=== PATIENT | female | born 1985 | race Two or more races ===

== ENCOUNTER 2017-05-29 22:35 | Emergency (ER) | payer MEDICAID ==
[~2017-05-29] VITALS: Ht 167.6 cm; Wt 63.5 kg
[~2017-05-29 22:35] MED LIST: VITAMIN
--- NOTE | 2017-05-29 22:45 | NUR ---
To bed 1 a 31 yo female bb self; "feels heart beating" on and off x 1 month, patient noted with anxiety. Nad noted, vss, nondiaphoretic. Initiated comfort measures. Awaiting for er md duarte.
--- NOTE | 2017-05-29 23:43 | NUR ---
started a saline lock on the rac g20, blood drawn and sent to lab.
[2017-05-29 23:45] LABS: BASOPHILS % (AUTO) 0.7 % (0.0-2.0); EOSINOPHILS % (AUTO) 0.4 % (0.0-6.0); HEMATOCRIT 39 % (33-45); HEMOGLOBIN 13.4 g/dL (11.5-14.8); LYMPHOCYTES # (AUTO) 1.2 /CMM (0.8-4.8); LYMPHOCYTES % (AUTO) 29.7 % (20.0-44.0); MEAN CORPUSCULAR HEMOGLOBIN 30 PG (26.0-33.0); MEAN CORPUSCULAR HGB CONC 34 g/dl (31.0-36.0); MEAN CORPUSCULAR VOLUME 88 fL (82-100); MONOCYTES # (AUTO) 0.5 /CMM (0.1-1.30); MONOCYTES % (AUTO) 11.8 % (2.0-12.0); NEUTROPHILS # (AUTO) 2.4 /CMM (1.8-8.9); NEUTROPHILS % (AUTO) 57.4 % (43.0-81.0); PLATELET COUNT (AUTO) 174 /CMM (150-450); RDW COEFFICIENT OF VARIATION 13.2 (11.5-15.0); RED BLOOD CELL COUNT(AUTO) 4.49 MIL/uL (4.0-5.2); WHITE BLOOD COUNT (AUTO) 4.2 K/uL (4.3-11.0)
[2017-05-29 23:56] LABS: CALCIUM, SERUM 8.2 mg/dL (8.5-10.1); CARBON DIOXIDE 26 mmol/L (21-32); CHLORIDE 102 mmol/L (98-107); CREATININE 0.8 mg/dL (0.6-1.3); GLUCOSE 90 mg/dL (74-106); POTASSIUM 3.5 mmol/L (3.5-5.1); SODIUM SERUM 138 mmol/L (136-145); UREA NITROGEN, BLOOD 10 mg/dL (7-18)
[2017-05-30] MEDS ORDERED: IV NS 0.9% 1,000 ML BAG IV ONE
[2017-05-30 00:05] LABS: TROPONIN I < 0.017 ng/mL (0.00-0.056)
[2017-05-30 00:06] LABS: D-DIMER 0.75 mg/L(FEU (0.17-0.50); INR 1.08 (0.87-1.13); PROTHROMBIN TIME 11.6 SECS (9.5-12.7)
[2017-05-30 00:19] LABS: APPEARANCE,URINE SL CLOUDY (CLEAR); BILIRUBIN,URINE 1+ (NEGATIVE); BLOOD, URINE 3+ Ery/uL (NEGATIVE); COLOR,URINE YELLOW (YELLOW); KETONES,URINE NEGATIVE (NEGATIVE); LEUKOCYTE ESTERASE ,URINE NEGATIVE (NEGATIVE); NITRITE, URINE NEGATIVE (NEGATIVE); PH,URINE 5.5 (5.0-8.0); PROTEIN,URINE 1+ mg/dl (NEGATIVE); UGLUCOSE NEGATIVE (NEGATIVE)
[2017-05-30] MEDS ORDERED: IV NS 0.9% 250 ML IV ONE (00:31)
[2017-05-30] MEDS ORDERED: IOHEXOL-350 100 ML VIAL IV ONE (00:31)
[2017-05-30 00:33] LABS: BACTERIA,URINE None seen /HPF (None Seen); SQUAMOUS EPITHELIAL CELL,UR Moderate /HPF (None Seen)
--- NOTE | 2017-05-30 00:33 | NUR ---
patient to cta.
[2017-05-30 00:34] LABS: MUCUS,URINE Few /LPF (None Seen)
[2017-05-30 01:09] LABS: THYROID STIMULATING HORMONE 1.901 uIU/mL (0.358-3.74)
--- NOTE | 2017-05-30 01:34 | NUR ---
IV removed. Catheter intact and site benign. Pressure and 4x4 applied to site. No bleeding noted. Patient discharged to home in stable condition. Written and verbal after care instructions given. Patient verbalizes understanding of instruction. Patient is ambulatory with steady gait, no further complaints.
[2017-05-30 01:38] VITALS: BP 110/70
== END 2017-05-30 01:38 | disposition home or self-care (01) ==
LOC: ER 22:38
DX: R00.2 Palpitations (principal); R07.89 Other chest pain; E86.0 Dehydration
CPT/HCPCS: 36415; 71010-TC; 80048-TC; 81000-TC; 84439-TC; 84443-TC; 84484-TC; 84703-TC; 85025-TC; 85378-TC; 85730-TC; A4606; J7030; J7050; Q9967; Z7610